=== PATIENT | male | born 1970 | race Hispanic/Latino ===

== ENCOUNTER 2019-05-22 22:56 | Inpatient (IN) | payer MEDICAID, OTHER ==
[~2019-05-22] VITALS: Ht 180.3 cm; Wt 119.7 kg
[2019-05-22 23:51] LABS: BASOPHILS % (AUTO) 0.2 % (0.0-5.0); EOSINOPHILS % (AUTO) 0.4 % (0.0-8.0); LYMPHOCYTES % (AUTO) 2.3 % (21.0-51.0); MEAN CORPUSCULAR HEMOGLOBIN 28.6 pg (27.0-33.0); MEAN CORPUSCULAR VOLUME 86.8 fL (79-99); MONOCYTES % (AUTO) 10.1 % (3.0-13.0); NEUTROPHILS % (AUTO) 86.3 % (40.0-77.0); PLATELET COUNT (AUTO) 186 K/uL (130-400); RED BLOOD CELL COUNT(AUTO) 5.07 MIL/uL (4.50-6.20); RED CELL DISTRIBUTION WIDTH 12.8 % (11.0-15.5); WHITE BLOOD COUNT (AUTO) 22.8 K/uL (4.8-10.8)
[2019-05-22] MEDS ORDERED: CEFTRIAXONE SODIUM 1 GM ONE (23:53)
[2019-05-23 00:31] LABS: ALBUMIN 2.6 g/dL (3.5-5.0); BILIRUBIN,TOTAL 0.5 mg/dL (0.2-1.0); CREATININE 1.6 mg/dL (0.5-1.5); TOTAL PROTEIN, SERUM 7.8 g/dL (6.0-8.3)
[2019-05-23] MEDS ORDERED: ACETAMINOPHEN 325 MG TAB ONE (01:23)
[2019-05-23] MEDS ORDERED: CLINDAMYCIN 900 MG/D5% WATER 50 ML IV ONE (01:23)
[2019-05-23] MEDS ORDERED: SODIUM CHLORIDE 0.9% 1000ML 1,000 ML IV ONE (01:24)
[2019-05-23] MEDS ORDERED: POTASSIUM BICARB/CIT AC 25 MEQ TABLET.EFF ONE (02:10)
[2019-05-23] MEDS: SODIUM CHLORIDE 0.9% 1000ML 1,000 ML IV SCH ×3 (02:21→19:40)
[2019-05-23] MEDS ORDERED: ONDANSETRON HCL 4 MG/2 ML VIAL IV PRN (02:30)
[2019-05-23] MEDS ORDERED: ACETAMINOPHEN 325 MG TAB PO PRN ×2 (02:30)
[2019-05-23] MEDS ORDERED: POTASSIUM CHLORIDE 10MEQ/100ML 100 ML IV PRN (02:30)
[2019-05-23] MEDS ORDERED: MORPHINE SULFATE 2 MG/ML 1ML SYG IV PRN (02:30)
[2019-05-23] MEDS ORDERED: LIDOCAINE HCL-MPF 1% 2ML VIAL IV PRN (02:30)
[2019-05-23] MEDS ORDERED: LACTULOSE 20 GM/30 ML UDCUP PO PRN (02:30)
[2019-05-23 03:35] VITALS: BP 141/91
--- NOTE | 2019-05-23 03:35 | NUR ---
Admission note: Admitted to floor per stretcher. Awake and responsive. Ambulatory. VS checked and recorded. Assessment done. (See CPOE for full assessment). Oriented to room and use of call light. Policies and procedures explained. Verbalized understanding. Has IV site to left hand #20 gauge with IL of NS at a rate of 100 ml/hr via dial flow - patent and intact. Plan of care initiated. Wound culture at tonsillar area collected and submitted to lab. For consults in AM with the following MD's: ( Vikas and Danielle) . Monitored and needs attended. Pain at tonsillar area tolerated at this time. No apparent distress noted.
[2019-05-23] MEDS ORDERED: ZOSYN 3.375GM+NS 50ML 50 ML IV SCH (05:00)
[2019-05-23 06:47] LABS: CREATININE 1.3 mg/dL (0.5-1.5); POTASSIUM 3.7 mmol/L (3.5-5.1)
[2019-05-23 07:22] LABS: BASOPHILS % (AUTO) 0.3 % (0.0-5.0); EOSINOPHILS % (AUTO) 0.2 % (0.0-8.0); HEMATOCRIT 42.5 % (42-54); LYMPHOCYTES % (AUTO) 4.2 % (21.0-51.0); MEAN CORPUSCULAR HEMOGLOBIN 28.7 pg (27.0-33.0); MEAN CORPUSCULAR HGB CONC 32.7 g/dL (32.0-36.0); MEAN CORPUSCULAR VOLUME 87.6 fL (79-99); MONOCYTES % (AUTO) 9.5 % (3.0-13.0); NEUTROPHILS % (AUTO) 85.3 % (40.0-77.0); PLATELET COUNT (AUTO) 173 K/uL (130-400); RED BLOOD CELL COUNT(AUTO) 4.85 MIL/uL (4.50-6.20); WHITE BLOOD COUNT (AUTO) 21.9 K/uL (4.8-10.8)
[2019-05-23 08:00] VITALS: BP 145/89
[2019-05-23] MEDS: ENOXAPARIN SODIUM 40 MG/0.4 ML SYRINGE SQ SCH (09:00)
[2019-05-23] MEDS: FAMOTIDINE/PF 20 MG/2 ML VIAL IV SCH ×2 (09:07→19:40)
--- NOTE | 2019-05-23 10:47 | NUR ---
INITIAL Patient lives with mother. Emergency contact is Sherrell Velasquez, [phone]. No home services or DME. 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 He is able to complete ADL's and drives. No PCP at this time. [facility]acy is [facility] in [place]. DCP is home. Patient has no insurance or benefits. He is a [place] citizen and is employed Patient was provided with community resources for post hospitalization follow up. Patient was also provided with Good RX card for prescriptions and educated on [employer] $4 medication program and [employer] $5 medication program. Patient is being assisted by [employer] for financial matters. Addendum: 05/23/19 at 1052 by IGNACIA CRUZ Amended: Links added.
--- NOTE | 2019-05-23 11:02 | NUR ---
DR WALLACE CONSULT NOTIFIED MD OF CONSULT FOR POSSIBLE PERITONISILLAR ABCSESS, MD WILL COME IN TO SEE PATIENT LATER ON TODAY.
[2019-05-23 11:56] VITALS: BP 153/99
[2019-05-23] MEDS ORDERED: SODIUM CHLORIDE 0.9% IV SCH (12:00)
[2019-05-23] MEDS ORDERED: AMPICILLIN SODIUM/SULBACTAM NA 1.5GM VIAL IV SCH (12:00)
[2019-05-23] MEDS ORDERED: AMPICILLIN SODIUM IV SCH (12:00)
[2019-05-23] MEDS ORDERED: SULBACTAM IV SCH (12:00)
[2019-05-23] MEDS ORDERED: UNASYN 1.5GM+NS 100ML 100 ML IV SCH (12:00)
[2019-05-23] MEDS: UNASYN 3GM+NS 100ML 100 ML IV SCH ×2 (14:30→19:39)
[2019-05-23] MEDS ORDERED: METHYLPREDNISOLONE SOD SUCC 40MG/ML 1ML IVP SCH (15:00)
[2019-05-23 16:00] VITALS: BP 153/99
[2019-05-23 20:00] VITALS: BP 154/106
[2019-05-24] VITALS (7 sets, daily range): BP systolic 138–151; BP diastolic 90–103
[2019-05-24] MEDS: UNASYN 3GM+NS 100ML 100 ML IV SCH ×4 (01:47→20:10)
[2019-05-24 05:07] LABS: BASOPHILS % (AUTO) 0.2 % (0.0-5.0); EOSINOPHILS % (AUTO) 0.1 % (0.0-8.0); HEMATOCRIT 43.7 % (42-54); MEAN CORPUSCULAR HEMOGLOBIN 29.2 pg (27.0-33.0); MEAN CORPUSCULAR HGB CONC 32.7 g/dL (32.0-36.0); MEAN CORPUSCULAR VOLUME 89.2 fL (79-99); MONOCYTES % (AUTO) 3.3 % (3.0-13.0); NEUTROPHILS % (AUTO) 92.2 % (40.0-77.0); PLATELET COUNT (AUTO) 218 K/uL (130-400); RED CELL DISTRIBUTION WIDTH 13.1 % (11.0-15.5); WHITE BLOOD COUNT (AUTO) 23.3 K/uL (4.8-10.8)
[2019-05-24 05:33] LABS: CREATININE 1.3 mg/dL (0.5-1.5); POTASSIUM 4.2 mmol/L (3.5-5.1)
[2019-05-24] MEDS: ENOXAPARIN SODIUM 40 MG/0.4 ML SYRINGE SQ SCH (10:09)
[2019-05-24] MEDS: FAMOTIDINE/PF 20 MG/2 ML VIAL IV SCH ×2 (10:09→20:10)
[2019-05-24] MEDS: SODIUM CHLORIDE 0.9% 1000ML 1,000 ML IV SCH ×2 (10:09→18:21)
[2019-05-24] MEDS: HYDRALAZINE HCL 20 MG/ML VIAL IV PRN (17:10)
[2019-05-24] MEDS: KETOROLAC TROMETHAMINE 30MG/ML IM PRN (17:56)
[2019-05-25] VITALS: BP 144/98
[2019-05-25] MEDS: UNASYN 3GM+NS 100ML 100 ML IV SCH ×2 (02:20→08:09)
[2019-05-25] MEDS: SODIUM CHLORIDE 0.9% 1000ML 1,000 ML IV SCH (02:20)
[2019-05-25 04:00] VITALS: BP 147/87
[2019-05-25 08:00] VITALS: BP 152/106
[2019-05-25] MEDS: FAMOTIDINE/PF 20 MG/2 ML VIAL IV SCH (08:08)
[2019-05-25] MEDS: ENOXAPARIN SODIUM 40 MG/0.4 ML SYRINGE SQ SCH (08:08)
[2019-05-25] MEDS: HYDRALAZINE HCL 20 MG/ML VIAL IV PRN (08:09)
[2019-05-25 09:06] LABS: HEMATOCRIT 45.2 % (42-54); MEAN CORPUSCULAR HEMOGLOBIN 28.4 pg (27.0-33.0); MEAN CORPUSCULAR HGB CONC 32.1 g/dL (32.0-36.0); MEAN CORPUSCULAR VOLUME 88.6 fL (79-99); PLATELET COUNT (AUTO) 233 K/uL (130-400); RED CELL DISTRIBUTION WIDTH 13.4 % (11.0-15.5); WHITE BLOOD COUNT (AUTO) 12.7 K/uL (4.8-10.8)
[2019-05-25 09:31] LABS: CREATININE 1.3 mg/dL (0.5-1.5); POTASSIUM 3.1 mmol/L (3.5-5.1)
[2019-05-25 12:00] VITALS: BP 140/96
[2019-05-25] MEDS ORDERED: AMOX-429 PO (13:59)
[2019-05-25] MEDS: KETOROLAC TROMETHAMINE 30MG/ML IM PRN (14:29)
--- NOTE | 2019-05-25 17:24 | NUR ---
NOTE DISCHARGE INSTRUCTIONS GIVEN TO PATIENT AT THIS TIME. VERBALIZED UNDERSTANDING. REFER TO DC SUMMARY FOR DETAILS.
== END 2019-05-25 17:32 | disposition home or self-care (01) | DRG 871 ==
LOC: EDH 22:56 → EDHIP 22:57 → 3AH 05-23 03:44
PROVIDERS: ADMIT Hospitalist; ATTEND Hospitalist
PROC: 0C9P3ZZ Drainage of Tonsils, Percutaneous Approach (ICD-10-PCS; principal; 2019-05-23)
DX: A41.9 Sepsis, unspecified organism (principal); G03.9 Meningitis, unspecified; J36 Peritonsillar abscess; K11.20 Sialoadenitis, unspecified; E87.6 Hypokalemia; E66.9 Obesity, unspecified; I10 Essential (primary) hypertension; J32.0 Chronic maxillary sinusitis; Z68.36 Body mass index [BMI] 36.0-36.9, adult; Z91.14 Patient's other noncompliance with medication regimen
CPT/HCPCS: 36415; 70490; 80048; 80053; 83605; 83735; 85025; 85027; 87040; 87070; 87076; 87804; 87880; 93005; G0378; J0295; J0360; J0696; J1650; J1885; J2543; J3490; J7030